=== PATIENT | female | born 1950 | race Asian ===

== ENCOUNTER 2018-02-06 05:54 | Day surgery (SDC) | payer MEDICARE, OTHER ==
[2018-02-06] MEDS ORDERED: CEFAZOLIN 2 GM/50 ML (PMX) 50 ML IVPB (07:30)
[2018-02-06] MEDS ORDERED: DEXTROSE 5%-LR 1,000 ML IV (07:30)
== END 2018-02-06 07:22 | disposition home or self-care (01) ==
LOC: SDS 05:54
DX: N84.2 Polyp of vagina (principal); Z53.9 Procedure and treatment not carried out, unspecified reason; N95.2 Postmenopausal atrophic vaginitis; N84.1 Polyp of cervix uteri; N81.10 Cystocele, unspecified; N39.3 Stress incontinence (female) (male); J45.909 Unspecified asthma, uncomplicated; I10 Essential (primary) hypertension
CPT/HCPCS: 93005

== ENCOUNTER 2018-03-02 05:48 | Day surgery (SDC) | payer MEDICARE, OTHER ==
[2018-03-02] MEDS ORDERED: DEXTROSE 5%-LR 1,000 ML IV (06:00)
[2018-03-02] MEDS ORDERED: CEFAZOLIN 2 GM/50 ML (PMX) 50 ML IVPB (06:00)
[2018-03-02] MEDS ORDERED: FENTAnyl 50 MCG/ML VIAL (08:48)
[2018-03-02] MEDS ORDERED: CEFAZOLIN 1 GM INJ (09:04)
[2018-03-02] MEDS ORDERED: SUGAMMADEX SODIUM 200 MG/2 ML VIAL IV (09:04)
[2018-03-02] MEDS ORDERED: ROCURONIUM 50 MG INJ (09:04)
[2018-03-02] MEDS ORDERED: LIDOCAINE 100 MG SYRINGE (09:04)
[2018-03-02] MEDS ORDERED: SUCCINYLCHOLINE CHLORIDE 100 MG/5 ML SYG IV (09:04)
[2018-03-02] MEDS ORDERED: PROPOFOL 20 ML (09:04)
[2018-03-02] MEDS ORDERED: FENTAnyl 50 MCG/ML VIAL IV ×2 (09:30)
[2018-03-02] MEDS ORDERED: HYDROmorphONE (0.2 MG/ML) 10ML SYG IV ×3 (09:30)
[2018-03-02] MEDS ORDERED: DIPHENHYDRAMINE 50 MG INJ IV (09:30)
[2018-03-02] MEDS ORDERED: MEPERIDINE 25 MG INJ IV (09:30)
[2018-03-02] MEDS ORDERED: METOCLOPRAMIDE 10 MG INJ IV (09:30)
[2018-03-02] MEDS ORDERED: ONDANSETRON 4 MG INJ IV (09:30)
[2018-03-02] MEDS ORDERED: PROVENTIL HFA 6.7GM INHALER (09:41)
== END 2018-03-02 12:00 | disposition home or self-care (01) ==
LOC: SDS 05:48
DX: N84.2 Polyp of vagina (principal); N84.1 Polyp of cervix uteri; N84.0 Polyp of corpus uteri; N72 Inflammatory disease of cervix uteri; N81.10 Cystocele, unspecified; N95.2 Postmenopausal atrophic vaginitis; D25.9 Leiomyoma of uterus, unspecified; R73.03 Prediabetes; J45.909 Unspecified asthma, uncomplicated; I10 Essential (primary) hypertension
CPT/HCPCS: 57135; 88305; 93005